=== PATIENT | male | born 1980 | race Hispanic/Latino ===

== ENCOUNTER 2020-01-08 14:03 | Emergency (ER) | payer OTHER, SELFPAY ==
--- NOTE | 2020-01-08 14:42 | CT ---
Exam: Head CT without contrast HISTORY: Patient is incoherent. Anxiety one week ago. Altered mental status. COMPARISON: 02/05/2010 FINDINGS: Hemorrhage: No intraparenchymal hemorrhage or extra-axial hematoma. Brain parenchyma: Cortical gamble-white matter differentiation is preserved. No mass effect or midline shift. Basilar cisterns are patent. Ventricular system: Ventricles and sulci are patent and symmetric. Calvarium: Intact. Sinuses and mastoid air cells: Adequate aeration. IMPRESSION: No acute intracranial process.
[2020-01-08 15:04] LABS: Hemoglobin 15.3 g/dL (14.0-18.0); Mean Corpuscular HGB CONC 33.6 g/dL (32.0-36.0); Mean Corpuscular Hemoglobin 30.1 pg (27.0-31.0); Mean Corpuscular Volume 89.6 fL (78.0-98.0); RBC Distribution Width 11.7 % (11.5-14.5); Red Blood Cell (RBC) Count 5.08 mill/uL (4.70-6.10); White Blood Cell (WBC) Count 3.5 thou/uL (4.8-10.8)
[2020-01-08 15:06] LABS: Mean Platelet Volume 7.8 fL (7.4-10.4); Platelet Count 73 thou/uL (130-400)
[2020-01-08 15:17] LABS: Bilirubin Negative (Negative); Blood, Urine Negative (Negative); Clarity Clear (Clear); Glucose, Urine (Dipstick) Normal (Negative); Ketone, Urine Negative (Negative); Leukocyte Negative Leu/uL (Negative); Nitrite Negative (Negative); Protein, Urine (Dipstick) 10 mg/dL (Neg-Trace); Specific Gravity, Urine 1.003 (1.002-1.036); Urobilinogen Normal mg/dL (Less than 2); pH, Urine 5.5 (5.0-9.0)
[2020-01-08 15:19] LABS: Acetaminophen Less than 6.0 mcg/mL (10.0-30.0); Band 4 % (5-11); Eosinophils 1 % (0-10); Lymphocytes 22 % (21-51); MDiff Complete? YES; Monocytes 19 % (0-10); Neutrophil 51 % (42-75); Platelet Morphology Comment Appears Decreased; RBC Morphology Normal; Reactive Lymphocytes 3 % (0-10); Salicylate Less than 8.0 mg/dL (15.0-30.0)
[2020-01-08 15:20] LABS: ALT (SGPT) 174 U/L (8-55); AST (SGOT) 174 U/L (5-34); Albumin 4.3 g/dL (3.5-5.0); Alkaline Phosphatase 79 U/L (40-110); Anion Gap 18 mmol/L (10-20); BUN (Urea Nitrogen) Less than 4 mg/dL (8.9-20.6); Bilirubin, Total 0.8 mg/dL (0.2-1.2); Calc. Creatinine Clearance 0 mL/min (70-130); Carbon Dioxide 25 mmol/L (22-29); Chloride 95 mmol/L (98-107); Estimated GFR-MDRD Greater than 90; Globulin 3.5 g/dL (2.4-3.5); Glucose 110 mg/dL (70-105); Potassium 3.8 mmol/L (3.5-5.1); Protein, Total 7.8 g/dL (6.0-8.3); Sodium 134 mmol/L (136-145)
[2020-01-08 15:26] LABS: Alcohol 426 mg/dL (Less than 10)
[2020-01-08 15:27] LABS: Amphetamine Not Detected (NotDetected); Barbiturates Screen Not Detected (NotDetected); Benzodiazepine Screen Detected (NotDetected); Cocaine Metabolite Screen Not Detected (NotDetected); Medtox Control Line Valid? VALID (VALID); Medtox Reader # READER 4; Methadone Not Detected (NotDetected); Methamphetamine Not Detected (NotDetected); Opiate Screen Not Detected (NotDetected); Oxycodone Screen Not Detected (NotDetected); Phencyclidine (PCP) Not Detected (NotDetected); THC/Cannabinoid Screen Not Detected (NotDetected); Tricyclic Screen Not Detected (NotDetected)
== END 2020-01-08 16:12 | disposition home or self-care (01) ==
LOC: ERS 14:03
DX: F10.129 Alcohol abuse with intoxication, unspecified (principal); F13.90 Sedative, hypnotic, or anxiolytic use, unspecified, uncomplicated; F41.9 Anxiety disorder, unspecified; F32.9 Major depressive disorder, single episode, unspecified; F17.210 Nicotine dependence, cigarettes, uncomplicated; Y90.8 Blood alcohol level of 240 mg/100 ml or more; Z79.899 Other long term (current) drug therapy
CPT/HCPCS: 36415; 70450; 80053; 80306; 80307; 81003; 84443; 85025